=== PATIENT | female | born 1950 | race Caucasian/White ===

== ENCOUNTER 2018-03-02 14:28 | Inpatient (IN) | payer MEDICARE ==
[~2018-03-02] VITALS: Ht 170.2 cm; Wt 79.5 kg
[2018-03-02 15:02] LABS: BASO # 0.1 x10^3/uL (0.0-0.2); BASO % 1 % (0-3); EOS % 0 % (0-3); HEMATOCRIT 43.4 % (36.0-47.0); HEMOGLOBIN 14.7 g/dL (12.0-15.5); LYMPH # 1.7 x10^3/uL (1.0-4.8); LYMPH % 16 % (24-48); MEAN CORPUSCULAR HEMOGLOBIN 29 pg (25-35); MEAN CORPUSCULAR HGB CONC 34 g/dL (31-37); MEAN CORPUSCULAR VOLUME 85 fL (79-100); MONO # 0.6 x10^3/uL (0.0-1.1); MONO % 6 % (0-9); NEUT # 8.3 x10^3uL (1.8-7.7); NEUT % 78 % (31-73); PLATELET COUNT 237 x10^3/uL (140-400); RED BLOOD COUNT 5.14 x10^6/uL (3.50-5.40); RED CELL DISTRIBUTION WIDTH 15.8 % (11.5-14.5); WHITE BLOOD COUNT 10.7 x10^3/uL (4.0-11.0)
[2018-03-02 15:04] LABS: BILIRUBIN,URINE SMALL (NEG); CLARITY,URINE CLEAR; COLOR,URINE YELLOW; NITRITE,URINE NEGATIVE (NEG); PH,URINE 6.5; PROTEIN,URINE 30 mg/dL (NEG-TRACE)
--- NOTE | 2018-03-02 15:04 | EKG ---
[facility] [address] [place] [address] Test Date: 2018-03-02 Test Time: 14:52:22 Pat Name: ANTHONY MCMILLAN Department: Room: Gender: F Hand [employer]le [employer]: : 1950 Requested By: RENNY CISNEROS Order Number: [id number] Reading MD: Bijan Ferrera MD Measurements Intervals [place] Rate: 84 P: 49 CT: 138 QRS: 45 QRSD: 94 T: 66 QT: 354 QTc: 421 Interpretive Statements SINUS RHYTHM Electronically Signed On 03-03-2018 2:26:46 CDT by Bijan Ferrera MD
[2018-03-02 15:12] LABS: CALCIUM 9.7 mg/dL (8.5-10.1); CREATININE 0.8 mg/dL (0.6-1.0); GFR 71.1; POTASSIUM 3.2 mmol/L (3.5-5.1)
[2018-03-02 15:18] LABS: ALBUMIN 4.2 g/dL (3.4-5.0); ALBUMIN/GLOBULIN RATIO 1.2 (1.0-1.7); C-REACTIVE PROTEIN 14.1 mg/L (0-3.3); TOTAL BILIRUBIN 0.6 mg/dL (0.2-1.0); TOTAL PROTEIN 7.6 g/dL (6.4-8.2)
[2018-03-02 15:18] LABS: RBC,URINE OCC /HPF (0-2)
--- NOTE | 2018-03-02 15:18 | RAD ---
CT HEAD WO CONTRAST History: Confusion, weakness Comparison: None. Technique: Noncontrast CT imaging was performed of the head. Exposure: One or more of the following individualized dose reduction techniques were utilized for this examination: 1. Automated exposure control 2. Adjustment of the mA and/or kV according to patient size 3. Use of iterative reconstruction technique. Findings: There is a focus of lower density up to about 3.5 cm in size with cortical involvement of the left temporal occipital lobes. There is some other ill-defined low-density of the supratentorial parenchyma. No acute extra-axial or parenchymal hemorrhage is identified. There is no significant intra-axial mass effect, midline shift, or extra-axial fluid collection. Ventricles, sulci, and cisterns are within normal limits in size and configuration. The mastoid air cells and the visualized paranasal sinuses are aerated. No acute calvarial abnormality is identified. Impression: 1. There is a focus of low density with cortical involvement of the left temporal occipital lobes, likely due to late subacute infarct. There is other mild ill-defined low-density of the supratentorial parenchyma probably due to chronic microvascular ischemic disease. No acute intracranial hemorrhage is identified. FOR INTERNAL CODING PURPOSES Critical result: Findings discussed with RENNY CISNEROS APRN at 03/02/2018 3:14 PM. RESULT CODE: (C) Electronically signed by: Alexandru Singh MD (03/02/2018 3:15 PM) [facility]
[2018-03-02 15:19] LABS: BACTERIA,URINE MANY /HPF (0-FEW); SQUAMOUS EPITHELIAL CELL,UR MANY /LPF
[2018-03-02 15:25] LABS: CREATINE KINASE 43 U/L (26-192)
--- NOTE | 2018-03-02 15:48 | PHYS DOC ---
Past Medical History Past Medical History: Anxiety, Depression, GERD, Other Additional Past Medical Histor: chronic back pain Past Surgical History: Hysterectomy, Other Additional Past Surgical Histo: back surgery Additional Information: 1 06/30 ppd Alcohol Use: None Drug Use: None Adult General Chief Complaint Chief Complaint: NEURO SYMPTOMS/DEFICITS [facility] Patient is a 67 year old female who presents with weakness to her upper and lower extremities as well as confusion x 2 months. She states that she has become extremely concerned because you believe and forget her dog's name at times. she said this is not normal behavior for her. She states that she will also intermittently lose control of an arm or leg. She states that this can be either right or left side. She has also been having fatigue. She denies fever, headache or pain. Review of Systems Review of Systems Constitutional: Denies fever or chills [] Eyes: Denies change in visual acuity, redness, or eye pain [] HENT: Denies nasal congestion or sore throat [] Respiratory: Denies cough or shortness of breath [] Cardiovascular: No additional information not addressed in HPI [] GI: Denies abdominal pain, nausea, vomiting, bloody stools or diarrhea [] : Denies dysuria or hematuria [] Musculoskeletal: Denies back pain or joint pain [] Integument: Denies rash or skin lesions [] Neurologic: See history of present illness All other systems were reviewed and found to be within normal limits, except as documented in this note. Physical Exam Physical Exam Constitutional: Well developed, well nourished, no acute distress, non-toxic appearance. [] HENT: Normocephalic, atraumatic, bilateral external ears normal, oropharynx moist, no oral exudates, nose normal. [] Eyes: PERRLA, EOMI, conjunctiva normal, no discharge. [] Neck: Normal range of motion, no tenderness, supple, no stridor. [] Cardiovascular:Heart rate regular rhythm, no murmur [] Lungs & Thorax: Bilateral breath sounds clear to auscultation [] Abdomen: Bowel sounds normal, soft, no tenderness, no masses, no pulsatile masses. [] Skin: Warm, dry, no erythema, no rash. [] Back: No tenderness, no CVA tenderness. [] Extremities: No tenderness, no cyanosis, no clubbing, ROM intact, no edema. [] Neurologic: Alert and oriented X 3, normal motor function, normal sensory function Psychologic: Affect normal, judgement normal, mood normal. [] Current Patient Data Vital Signs Vital Signs Date Time Temp Pulse Resp B/P (MAP) Pulse Ox O2 Delivery O2 Flow Rate FiO2 03/02/18 16:37 76 96 03/02/18 15:43 20 03/02/18 14:38 99.0 221/107 (145) Room Air 99.0 Lab Values Laboratory Tests Test 03/02/18 14:35 03/02/18 14:45 03/02/18 14:52 Urine Collection Type Void Urine Color Yellow Urine Clarity Clear Urine pH 6.5 Urine Specific [place] 1.025 Urine Protein 30 mg/dL (NEG-TRACE) Urine Glucose (UA) Negative mg/dL (NEG) Urine Ketones (Stick) 15 mg/dL (NEG) Urine Blood Moderate (NEG) Urine Nitrite Negative (NEG) Urine Bilirubin Small (NEG) Urine Urobilinogen Dipstick 1.0 mg/dL (0.2 mg/dL) Urine Leukocyte Esterase Small (NEG) Urine RBC Occ /HPF (0-2) Urine WBC 1-4 /HPF (0-4) Urine Squamous Epithelial Cells Many /LPF Urine Bacteria Many /HPF (0-FEW) Urine Mucus Marked /LPF White Blood Count 10.7 x10^3/uL (4.0-11.0) Red Blood Count 5.14 x10^6/uL (3.50-5.40) Hemoglobin 14.7 g/dL (12.0-15.5) Hematocrit 43.4 % (36.0-47.0) Mean Corpuscular Volume 85 fL (79-100) Mean Corpuscular Hemoglobin 29 pg (25-35) Mean Corpuscular Hemoglobin Concent 34 g/dL (31-37) Red Cell Distribution Width 15.8 % (11.5-14.5) H Platelet Count 237 x10^3/uL (140-400) Neutrophils (%) (Auto) 78 % (31-73) H Lymphocytes (%) (Auto) 16 % (24-48) L Monocytes (%) (Auto) 6 % (0-9) Eosinophils (%) (Auto) 0 % (0-3) Basophils (%) (Auto) 1 % (0-3) Neutrophils # (Auto) 8.3 x10^3uL (1.8-7.7) H Lymphocytes # (Auto) 1.7 x10^3/uL (1.0-4.8) Monocytes # (Auto) 0.6 x10^3/uL (0.0-1.1) Eosinophils # (Auto) 0.0 x10^3/uL (0.0-0.7) Basophils # (Auto) 0.1 x10^3/uL (0.0-0.2) Erythrocyte Sedimentation Rate 18 (0-25) Sodium Level 138 mmol/L (136-145) Potassium Level 3.2 mmol/L (3.5-5.1) L Chloride Level 103 mmol/L (98-107) Carbon Dioxide Level 30 mmol/L (21-32) Anion Gap 5 (6-14) L Blood Urea Nitrogen 17 mg/dL (7-20) Creatinine 0.8 mg/dL (0.6-1.0) Estimated GFR (Cockcroft-Gault) 71.1 BUN/Creatinine Ratio 21 (6-20) H Glucose Level 107 mg/dL (70-99) H Lactic Acid Level 1.1 mmol/L (0.4-2.0) Calcium Level 9.7 mg/dL (8.5-10.1) Total Bilirubin 0.6 mg/dL (0.2-1.0) Aspartate Amino Transferase (AST) 14 U/L (15-37) L Alanine Aminotransferase (ALT) 21 U/L (14-59) Alkaline Phosphatase 136 U/L (46-116) H Creatine Kinase 43 U/L (26-192) Creatine Kinase MB (Mass) 0.6 ng/mL (0.0-3.6) Creatine Kinase MB Relative Index % (0-4) Troponin I Quantitative < 0.017 ng/mL (0.000-0.055) C-Reactive Protein, Quantitative 14.1 mg/L (0-3.3) H EO-Cdq-Y-Type Natriuretic Peptide 430 pg/mL (0-124) H Total Protein 7.6 g/dL (6.4-8.2) Albumin 4.2 g/dL (3.4-5.0) Albumin/Globulin Ratio 1.2 (1.0-1.7) Vitamin B12 Level 697 pg/mL (247-911) Thyroid Stimulating Hormone (TSH) 0.574 uIU/mL (0.358-3.74) Glucose (Fingerstick) 99 mg/dL (70-99) Laboratory Tests 03/02/18 14:45 Laboratory Tests 03/02/18 14:45 Microbiology 03/02/18 Urine Culture - Final, Complete 03/02/18 Urine Culture Result 1 (VIRIDIANA) - Final, Complete EKG EKG [] Radiology/Procedures Radiology/Procedures []Signed PATIENT: ANTHONY MCMILLAN ACCOUNT: [id number] : 1950 LOCATION: ER AGE: 67 SEX: F EXAM STATUS: REG ER ORD. PHYSICIAN: RENNY CISNEROS APRN REASON: confusion PROCEDURE: CT HEAD WO CONTRAST CT HEAD WO CONTRAST History: Confusion, weakness Comparison: None. Technique: Noncontrast CT imaging was performed of the head. Exposure: One or more of the following individualized dose reduction techniques were utilized for this examination: 1. Automated exposure control 2. Adjustment of the mA and/or kV according to patient size 3. Use of iterative reconstruction technique. Findings: There is a focus of lower density up to about 3.5 cm in size with cortical involvement of the left temporal occipital lobes. There is some other ill-defined low-density of the supratentorial parenchyma. No acute extra-axial or parenchymal hemorrhage is identified. There is no significant intra-axial mass effect, midline shift, or extra-axial fluid collection. Ventricles, sulci, and cisterns are within normal limits in size and configuration. The mastoid air cells and the visualized paranasal sinuses are aerated. No acute calvarial abnormality is identified. Impression: 1. There is a focus of low density with cortical involvement of the left temporal occipital lobes, likely due to late subacute infarct. There is other mild ill-defined low-density of the supratentorial parenchyma probably due to chronic microvascular ischemic disease. No acute intracranial hemorrhage is identified. FOR INTERNAL CODING PURPOSES Critical result: Findings discussed with RENNY CISNEROS APRN at 03/02/2018 3:14 PM. RESULT CODE: (C) Course & Med Decision Making Course & Med Decision Making Pertinent Labs and Imaging studies reviewed. (See chart for details) The patient is being admitted to Dr. Kim's service. Dr. Castro has been consulted in the care of this patient. Dragon Disclaimer Dragon Disclaimer This electronic medical record was generated, in whole or in part, using a voice recognition dictation system. Departure Departure Impression: Primary Impression: CVA (cerebral vascular accident) Additional Impression: UTI (urinary tract infection) Disposition: 09 ADMITTED INPATIENT Admitting Physician: Tre Kim Referrals: UNKNOWN PCP NAME (PCP) Problem Qualifiers RENNY CISNEROS [employer] Mar 02, 2018 15:48
--- NOTE | 2018-03-02 16:11 | RAD ---
CHEST PA LATERAL Clinical indications: weak and dizzy for months. COMPARISON: None available. Findings: No acute lung infiltrate or pleural effusion or pulmonary edema or lung mass or pneumothorax is seen. The heart size, pulmonary vasculature, mediastinum and both jean carlos are unremarkable. The osseous structures appear intact. Impression: No acute radiographic abnormality is seen. Electronically signed by: Robert Allen MD (03/02/2018 4:08 PM) [facility]
[2018-03-02] MEDS ORDERED: METOPROLOL TARTRATE 5 MG/5 ML VIAL. IVP ONE (17:00)
[2018-03-02] MEDS ORDERED: LABETALOL 20 MG/4 ML DISP.SYRIN. IVP PRN (19:00)
[2018-03-02] MEDS ORDERED: LISINOPRIL 10 MG TABLET PO ONE (19:30)
[2018-03-02 20:00] VITALS: BP 189/85
[2018-03-02] MEDS ORDERED: OMEP20TA63 PO (20:11)
[2018-03-02] MEDS ORDERED: LOPE2CAP88 PO (20:11)
[2018-03-02] MEDS ORDERED: LOPERAMIDE HCL 2 MG PO SCH (21:00)
[2018-03-02] MEDS: ZOLPIDEM 5 MG TABLET. PO PRN (21:09)
[2018-03-02 23:05] VITALS: BP 114/89
[2018-03-03] MEDS: LOPERAMIDE 2 MG CAPSULE PO PRN ×2 (03:04→20:08)
[2018-03-03 03:10] VITALS: BP 175/76
[2018-03-03 07:59] VITALS: BP 167/65
--- NOTE | 2018-03-03 08:31 | PDOC1 ---
H & P H&P HPI: Mrs. Espinosa is a 67-year-old female with past medical history of hypertension and hx of tobacco abuse who presented to the emergency room for chronic neurological symptoms that began proximally 5-6 months ago. She doesn't remember a period of time when symptoms onset suddenly. Of note she has not been seen in our office since 2013 and has been without her medications for this time. She notes generalized weakness (possibly R worse than L) for quite sometime. She denies falls, but notes feeling unsteady. She notes tingling/ numbness in fingers only in b/l hands, denies any other numbness. She notes vision changes that she has difficulty fully explaining but seems more blurry than anything else. Denies distinct visual field loss. She denies feeling confused, but seems to have some difficulty answering questions during the interview ROS: Constitutional: Denies fever, fatigue, chills HEENT: Admits vision changes, denies change in hearing Cardio: Denies chest pain Pulmonary: Denies shortness of breath, cough, wheezing GI: Denies nausea, vomiting, diarrhea, constipation : Denies dysuria, admits frequency, urgency Skin: Denies new lesions Neuro: Admits generalized weakness, numbness in fingers b/l hands ED Course: Labs are remarkable for normal TSH normal B12, mildly elevated CRP and BNP, mild hypokalemia 3.2. Otherwise unremarkable. UA was significant for moderate blood small leukoesterase and small bili with negative nitrites and was noted to have copious squams and bacteria present. She was given Rocephin and admitted for further management. PMH: HTN, nicotine dependence, GERD, chronic diarrhea, reports hx of rheumatic fever as a child Family Hx: GM had a stroke, Sister had DM Social Hx: Pt denies being a smoker. though documentation from 2013 in clinic shows that she was a smoker at that time. No alcohol or drug use reported. Surg Hx: Hysterectomy in 80s, denies any other recent surgeries Meds: Reviewed and reconciled Allergies: Reviewed PE: Alert, oriented, no acute distress EOMI, sclera non-icteric Neck supple RRR, 2/6 systolic murmur at 2nd R intercostal space CTAB, no wheezes, crackles or rhonchi Soft, NT, ND No edema, cyanosis. Normal capillary refill. Calm, cooperative, mood/affect within normal limits, seems mildly confused. Basic MMSE was normal apart from spelling WORLD backwards as DLORW and remember 2/[address] HEAD WO CONTRAST History: Confusion, weakness Impression: 1. There is a focus of low density with cortical involvement of the left temporal occipital lobes, likely due to late subacute infarct. There is other mild ill-defined low-density of the supratentorial parenchyma probably due to chronic microvascular ischemic disease. No acute intracranial hemorrhage is identified. Assessment/Plan: Late subacute left temporal/occipital lobe CVA Chronic microvascular ischemic disease Accelerated HTN Mild UTI Possibly hx of nicotine dependence Possible mild cognitive impairment GERD Chronic diarrhea Added lisinopril 20mg yesterday for HTN control with moderate improvement, continue to monitor Neuro consulted PT/OT eval MRI, Carotid dopplers, Echo CHIP HERNANDEZ MD Mar 03, 2018 08:31
[2018-03-03] MEDS: LISINOPRIL 20 MG TABLET PO SCH (08:49)
[2018-03-03] MEDS: PANTOPRAZOLE 40 MG TABLET.DR. PO SCH (08:49)
[2018-03-03] MEDS ORDERED: ASPIRIN 300 MG SUPP.RECT PR PRN (09:00)
[2018-03-03] MEDS ORDERED: ACETAMINOPHEN 650 MG SUPP.RECT. PR PRN (09:00)
[2018-03-03] MEDS ORDERED: diazePAM 5 MG TABLET PO ONE ×2 (09:00→13:30)
--- NOTE | 2018-03-03 10:19 | RAD ---
Carotid ultrasound, 03/03/2018: HISTORY: CVA Duplex evaluation of the carotid arteries and neck was performed including grayscale, color-flow and spectral Doppler analysis. There is moderate atherosclerotic plaquing at the right carotid bifurcation with dominant involvement of the external carotid artery origin. The peak systolic velocity in the proximal right external carotid artery is 397 suggesting stenosis at its origin. Correlation with the color images suggest a moderate degree of stenosis. The peak systolic velocity in the right internal carotid artery is 93 cm/s with an end-diastolic velocity of 27 cm/s and an internal carotid to common carotid artery ratio 1.1. This suggests luminal narrowing of the proximal internal carotid artery in the 0-50 percent diameter range. On the left, there is a lesser degree of atherosclerotic plaquing. The peak systolic velocity in the left internal carotid artery is 80 cm/s with an end-diastolic velocity of 25 cm/s and an internal carotid to common carotid artery ratio of 0.8. The Doppler findings suggest narrowing of the proximal internal carotid artery in the 0-50 percent diameter range. There is a moderate velocity acceleration the left external carotid artery up to 198 cm/s. Antegrade flow is present in both vertebral arteries in the neck. IMPRESSION: 1. Moderate atherosclerotic plaquing at the carotid bifurcations, right greater than left, with underlying luminal narrowing of the proximal internal carotid arteries in the 0-50 percent diameter range bilaterally. 2. Doppler evidence of moderate stenosis at the external carotid artery origins, right greater than left. Note: Stenosis calculations for CT, MRA and conventional angiography are based upon determination of the distal ICA diameter in accordance with the NASCET methodology. Stenosis calculations for Doppler studies are derived from validated velocity criteria which are known to correlate with NASCET methodology of determining stenosis. Electronically signed by: Jose Maria Villa MD (03/03/2018 10:16 AM) [facility]
[2018-03-03 11:00] VITALS: BP 144/75
--- NOTE | 2018-03-03 11:06 | PDOC2 ---
NEUROLOGY CONSULT Date of Admission Date of Admission DATE: 03/03/18 TIME: 11:00 Reason for Consult Reason for Consult: Possible stroke Referring Physician Referring Physician: Dr. Flores Source Source: Chart review, Patient History of Present Illness History of Present Illness The patient is a 67-year-old right-handed female who came to the emergency department last night because she could no longer take care of herself. For as long as 5 months she has had blurred vision, clumsiness of both arms, weakness of the arms and legs, and difficulty walking. She has not seen a physician in several years. There is no headache, diplopia, dysphagia, dysarthria, focal numbness or weakness. There is no prior history of stroke, seizure, or head injury. She has not figured out inciting or mitigating features. Past Medical History Cardiovascular: HTN GI: GERD Psych: Anxiety, Depression Musculoskeletal: low back pain Past Surgical History Past Surgical History: Tonsillectomy, Hysterectomy, Other (Lumbar) Family History Family History: Cancer Social History Social History Single, quit smoking yesterday, no alcohol, retired Current Medications Current Medications Current Medications Metoprolol Tartrate (Lopressor Vial) 5 mg 1X ONCE IVP Last administered on 03/02at 17:40; Start 03/02/18 at 17:00; Stop 03/02/18 at 17:01; Status DC Lisinopril (Prinivil) 20 mg 1X ONCE PO Last administered on 03/02/18at 19:40; Start 03/02/18 at 19:30; Stop 03/02/18 at 19:31; Status DC Lisinopril (Prinivil) 20 mg DAILY PO Last administered on 03/03/18at 08:49; Start 03/03/18 at 09:00 Labetalol HCl (Normodyne Iv Push) 10 mg PRN Q4HRS PRN IVP HYPERTENSION, SEE COMMENTS; Start 03/02/18 at 19:00 Zolpidem Tartrate (Ambien) 5 mg PRN QHS PRN PO INSOMNIA Last administered on 03/02/18at 21:09; Start 03/02/18 at 20:30 Non-Formulary Medication (Loperamide HCl (Imodium A-D)) 2 mg QID PO ; Start 03/02 at 21:00; Stop 03/02/18 at 21:00; Status DC Pantoprazole Sodium (Protonix) 40 mg DAILYAC PO Last administered on 03/03/18at 08:49; Start 03/03/18 at 07:30 Loperamide HCl (Imodium) 2 mg PRN QID PRN PO DIARRHEA Last administered on at 03:04; Start 03/02/18 at 20:45 Enoxaparin Sodium (Lovenox 40mg Syringe) 40 mg DAILY SQ ; Start 03/03/18 at 09:00 Simvastatin (Zocor) 10 mg QHS PO ; Start 03/03/18 at 21:00 Acetaminophen (Tylenol) 650 mg PRN Q6HRS PRN PO TEMP > 100.4F; Start 03/03/18 at 09:00 Acetaminophen (Tylenol Supp) 650 mg PRN Q4HRS PRN NC TEMP > 100.4F; Start at 09:00 Aspirin (Ecotrin) 325 mg DAILYWBKFT PO ; Start 03/03/18 at 09:00 Aspirin (Aspirin) 300 mg PRN DAILY PRN NC IF UNABLE TO TAKE PO; Start 03/03/18 at 09:00 Diazepam (Valium) 10 mg 1X ONCE PO ; Start 03/03/18 at 09:00; Stop 03/03/18 at 09 :01; Status DC Ceftriaxone Sodium 1 gm/ Dextrose 50 ml @ 100 mls/hr Q24H IV ; Start 03/03/18 at 09:45; Status UNV Ceftriaxone Sodium (Rocephin) 1 gm Q24H IVP ; Start 03/03/18 at 10:00 Lactobacillus Rhamnosus (Culturelle) 1 cap BID PO ; Start 03/03/18 at 21:00 Active Scripts Active Reported Prilosec Otc (Omeprazole Magnesium) 20 Mg Tablet.dr 1 Tab PO DAILY Imodium A-D (Loperamide HCl) 2 Mg Capsule 2 Mg PO QID Allergies Allergies: Coded Allergies: No Known Drug Allergies (Unverified , 03/02/18) ROS Review of System Negative for fevers, chills, weight loss, shortness of breath, chest pain, indigestion, hematochezia, melena, dysuria. Full 14-point review systems is negative. Physical Exam Physical Examination General: Well-developed, well-nourished, white female, in no acute distress HEENT: Normocephalic andatraumatic. Temporal arteriespulsatile and nontender. Neck: Supple without bruit, no meningismus Musculoskeletal: Stability:see neurologic. Gait exam:see neurologic. Tone:see neurologic. Strength:see neurologic. Neurological: Mental Status:intact, orientation, memory, attention span/concentration, language, fund of knowledge normal. Cranial Nerves:Pupils equal and reactive to light, extraocular movements areintact, visual louis are full to confrontation. Facial sensation is normal. There is no facial asymmetry. Vestibulo-ocular reflex is intact. Palate elevates and tongue protrudes in midline. All other cranial related problems are negative except as mentioned before.Reflexes:2+ and symmetric with flexor plantar responses. Motor:5/5 strength with normal tone and bulk. Coordination:Finger-nose finger and heel-to -tyler testing are normal. Rapid alternating movements and fine finger movements are intact. Gait: ataxic. Sensory:Normal pinprick, vibration, light touch, proprioception. Vitals VITALS Vital Signs Date Time Temp Pulse Resp B/P (MAP) Pulse Ox O2 Delivery O2 Flow Rate FiO2 03/03/18 08:49 64 167/65 03/03/18 08:00 Room Air 03/03/18 07:59 98.8 16 93 98.8 Labs Labs Laboratory Tests Test 03/02/18 14:35 03/02/18 14:45 03/02/18 14:52 Urine Collection Type Void Urine Color Yellow Urine Clarity Clear Urine pH 6.5 Urine Specific [place] 1.025 Urine Protein 30 mg/dL (NEG-TRACE) Urine Glucose (UA) Negative mg/dL (NEG) Urine Ketones (Stick) 15 mg/dL (NEG) Urine Blood Moderate (NEG) Urine Nitrite Negative (NEG) Urine Bilirubin Small (NEG) Urine Urobilinogen Dipstick 1.0 mg/dL (0.2 mg/dL) Urine Leukocyte Esterase Small (NEG) Urine RBC Occ /HPF (0-2) Urine WBC 1-4 /HPF (0-4) Urine Squamous Epithelial Cells Many /LPF Urine Bacteria Many /HPF (0-FEW) Urine Mucus Marked /LPF White Blood Count 10.7 x10^3/uL (4.0-11.0) Red Blood Count 5.14 x10^6/uL (3.50-5.40) Hemoglobin 14.7 g/dL (12.0-15.5) Hematocrit 43.4 % (36.0-47.0) Mean Corpuscular Volume 85 fL (79-100) Mean Corpuscular Hemoglobin 29 pg (25-35) Mean Corpuscular Hemoglobin Concent 34 g/dL (31-37) Red Cell Distribution Width 15.8 % (11.5-14.5) Platelet Count 237 x10^3/uL (140-400) Neutrophils (%) (Auto) 78 % (31-73) Lymphocytes (%) (Auto) 16 % (24-48) Monocytes (%) (Auto) 6 % (0-9) Eosinophils (%) (Auto) 0 % (0-3) Basophils (%) (Auto) 1 % (0-3) Neutrophils # (Auto) 8.3 x10^3uL (1.8-7.7) Lymphocytes # (Auto) 1.7 x10^3/uL (1.0-4.8) Monocytes # (Auto) 0.6 x10^3/uL (0.0-1.1) Eosinophils # (Auto) 0.0 x10^3/uL (0.0-0.7) Basophils # (Auto) 0.1 x10^3/uL (0.0-0.2) Erythrocyte Sedimentation Rate 18 (0-25) Sodium Level 138 mmol/L (136-145) Potassium Level 3.2 mmol/L (3.5-5.1) Chloride Level 103 mmol/L (98-107) Carbon Dioxide Level 30 mmol/L (21-32) Anion Gap 5 (6-14) Blood Urea Nitrogen 17 mg/dL (7-20) Creatinine 0.8 mg/dL (0.6-1.0) Estimated GFR (Cockcroft-Gault) 71.1 BUN/Creatinine Ratio 21 (6-20) Glucose Level 107 mg/dL (70-99) Lactic Acid Level 1.1 mmol/L (0.4-2.0) Calcium Level 9.7 mg/dL (8.5-10.1) Total Bilirubin 0.6 mg/dL (0.2-1.0) Aspartate Amino Transf (AST/SGOT) 14 U/L (15-37) Alanine Aminotransferase (ALT/SGPT) 21 U/L (14-59) Alkaline Phosphatase 136 U/L (46-116) Creatine Kinase 43 U/L (26-192) Creatine Kinase MB (Mass) 0.6 ng/mL (0.0-3.6) Creatine Kinase MB Relative Index % (0-4) Troponin I Quantitative < 0.017 ng/mL (0.000-0.055) C-Reactive Protein, Quantitative 14.1 mg/L (0-3.3) JW-Yra-N-Type Natriuretic Peptide 430 pg/mL (0-124) Total Protein 7.6 g/dL (6.4-8.2) Albumin 4.2 g/dL (3.4-5.0) Albumin/Globulin Ratio 1.2 (1.0-1.7) Vitamin B12 Level 697 pg/mL (247-911) Thyroid Stimulating Hormone (TSH) 0.574 uIU/mL (0.358-3.74) Glucose (Fingerstick) 99 mg/dL (70-99) Laboratory Tests Test 03/02/18 14:35 03/02/18 14:45 03/02/18 14:52 Urine Collection Type Void Urine Color Yellow Urine Clarity Clear Urine pH 6.5 Urine Specific [place] 1.025 Urine Protein 30 mg/dL (NEG-TRACE) Urine Glucose (UA) Negative mg/dL (NEG) Urine Ketones (Stick) 15 mg/dL (NEG) Urine Blood Moderate (NEG) Urine Nitrite Negative (NEG) Urine Bilirubin Small (NEG) Urine Urobilinogen Dipstick 1.0 mg/dL (0.2 mg/dL) Urine Leukocyte Esterase Small (NEG) Urine RBC Occ /HPF (0-2) Urine WBC 1-4 /HPF (0-4) Urine Squamous Epithelial Cells Many /LPF Urine Bacteria Many /HPF (0-FEW) Urine Mucus Marked /LPF White Blood Count 10.7 x10^3/uL (4.0-11.0) Red Blood Count 5.14 x10^6/uL (3.50-5.40) Hemoglobin 14.7 g/dL (12.0-15.5) Hematocrit 43.4 % (36.0-47.0) Mean Corpuscular Volume 85 fL (79-100) Mean Corpuscular Hemoglobin 29 pg (25-35) Mean Corpuscular Hemoglobin Concent 34 g/dL (31-37) Red Cell Distribution Width 15.8 % (11.5-14.5) Platelet Count 237 x10^3/uL (140-400) Neutrophils (%) (Auto) 78 % (31-73) Lymphocytes (%) (Auto) 16 % (24-48) Monocytes (%) (Auto) 6 % (0-9) Eosinophils (%) (Auto) 0 % (0-3) Basophils (%) (Auto) 1 % (0-3) Neutrophils # (Auto) 8.3 x10^3uL (1.8-7.7) Lymphocytes # (Auto) 1.7 x10^3/uL (1.0-4.8) Monocytes # (Auto) 0.6 x10^3/uL (0.0-1.1) Eosinophils # (Auto) 0.0 x10^3/uL (0.0-0.7) Basophils # (Auto) 0.1 x10^3/uL (0.0-0.2) Erythrocyte Sedimentation Rate 18 (0-25) Sodium Level 138 mmol/L (136-145) Potassium Level 3.2 mmol/L (3.5-5.1) Chloride Level 103 mmol/L (98-107) Carbon Dioxide Level 30 mmol/L (21-32) Anion Gap 5 (6-14) Blood Urea Nitrogen 17 mg/dL (7-20) Creatinine 0.8 mg/dL (0.6-1.0) Estimated GFR (Cockcroft-Gault) 71.1 BUN/Creatinine Ratio 21 (6-20) Glucose Level 107 mg/dL (70-99) Lactic Acid Level 1.1 mmol/L (0.4-2.0) Calcium Level 9.7 mg/dL (8.5-10.1) Total Bilirubin 0.6 mg/dL (0.2-1.0) Aspartate Amino Transf (AST/SGOT) 14 U/L (15-37) Alanine Aminotransferase (ALT/SGPT) 21 U/L (14-59) Alkaline Phosphatase 136 U/L (46-116) Creatine Kinase 43 U/L (26-192) Creatine Kinase MB (Mass) 0.6 ng/mL (0.0-3.6) Creatine Kinase MB Relative Index % (0-4) Troponin I Quantitative < 0.017 ng/mL (0.000-0.055) C-Reactive Protein, Quantitative 14.1 mg/L (0-3.3) EL-Uhu-J-Type Natriuretic Peptide 430 pg/mL (0-124) Total Protein 7.6 g/dL (6.4-8.2) Albumin 4.2 g/dL (3.4-5.0) Albumin/Globulin Ratio 1.2 (1.0-1.7) Vitamin B12 Level 697 pg/mL (247-911) Thyroid Stimulating Hormone (TSH) 0.574 uIU/mL (0.358-3.74) Glucose (Fingerstick) 99 mg/dL (70-99) Images Images CT head: There is a focus of lower density up to about 3.5 cm in size with cortical involvement of the left temporal occipital lobes. There is some other ill-defined low-density of the supratentorial parenchyma. No acute extra-axial or parenchymal hemorrhage is identified. There is no significant intra-axial mass effect, midline shift, or extra-axial fluid collection. Ventricles, sulci, and cisterns are within normal limits in size and configuration. The mastoid air cells and the visualized paranasal sinuses are aerated. No acute calvarial abnormality is identified. Impression: 1. There is a focus of low density with cortical involvement of the left temporal occipital lobes, likely due to late subacute infarct. There is other mild ill-defined low-density of the supratentorial parenchyma probably due to chronic microvascular ischemic disease. No acute intracranial hemorrhage is identified. Assessment/Plan Assessment/Plan Impression: Left temporal-occipital infarct which may have happened several months ago leaving the patient with some clumsiness, confusion, but she does not exhibit the expected field cut. Recommendations: MRI of the brain Carotid Doppler studies Echocardiogram Rehabilitation modalities Aspirin Statin Check lipids Obviously not a candidate for alteplase as symptom started several months ago. Discussed with Dr. Flores Thank you for letting me help with the patient's care. ANT CARLSON MD Mar 03, 2018 11:06
[2018-03-03] MEDS: ENOXAPARIN 40 MG/0.4 ML SYRINGE. SQ SCH (11:19)
[2018-03-03] MEDS: ASPIRIN ENTERIC COATED 325 MG TABLET.DR. PO SCH (11:19)
[2018-03-03] MEDS: ACETAMINOPHEN 325 MG TABLET. PO PRN ×2 (11:19→20:08)
[2018-03-03] MEDS: cefTRIAXone IV Push 1 GM VIAL. IVP SCH (11:19)
--- NOTE | 2018-03-03 14:53 | RAD ---
MRI Brain without contrast History: Abnormal CT, old CVA, recent history of confusion and weakness Technique: Multiplanar, multisequential noncontrast MR imaging was performed of the brain. Contrast: None Comparison: March 02, [address] Findings: There is encephalomalacia and gliosis with cortical involvement of the left temporal occipital lobes corresponding with CT abnormality, some subtle associated old hemorrhage/hemosiderin deposition. However there are several scattered small foci of restricted diffusion of the left frontal parietal lobes with some cortical involvement although primarily in the white matter, also focus more centrally near the cingulate gyrus or corpus callosum and also a a few likely tiny foci of the right parietal cortical surface. There is also questionable tiny focus of the right occipital lobe. There is no midline shift or extra-axial fluid collection. There is other scattered oxtb-dr-ftubzxyu T2 and FLAIR hyperintense abnormality of the supratentorial parenchyma bilaterally greater on the left, also old lacunar infarcts of the left choi radiata and basal ganglia. There is xdkd-sn-dhghhwbq T2 and FLAIR hyperintense signal abnormality of the aster. There is preservation of the major arterial intracranial flow voids at the skull base. The mastoid air cells are aerated. Cerebellar tonsils are normal in location. There is preserved marrow signal of the clivus. There is no abnormality of the pineal gland or pituitary gland. Impression: 1. Abnormality on CT corresponds with old infarct with cortical involvement although there are several small acute or early subacute infarcts most numerous of the left frontal parietal lobes although also some foci of the right parietal lobe and questionably of the right occipital lobe and cingulate gyrus or corpus callosum. Other scattered T2 and FLAIR hyperintense signal abnormality of the supratentorial parenchyma greater on the left and also of the aster is probably due to chronic microvascular ischemic disease, also old lacunar infarct of the left choi radiata and basal ganglia. FOR INTERNAL CODING PURPOSES Critical result: Findings discussed with patient's nurse Earle at 03/03/2018 2:49 PM. RESULT CODE: (C) Electronically signed by: Alexandru Singh MD (03/03/2018 2:49 PM) [facility]
[2018-03-03 15:35] VITALS: BP 158/83
[2018-03-03] MEDS ORDERED: LABETALOL 20 MG/4 ML DISP.SYRIN. IVP PRN (16:00)
--- NOTE | 2018-03-03 16:09 | CARD ---
MR#: [id number] Date of Study: 03/03/2018 Ordering Physician: ANT CARLSON, Referring Physician: CHIP JAMISON Tech: Clau Carter RDCS APPROVED REPORT EXAM: Two-dimensional and M-mode echocardiogram with Doppler and color Doppler. Other Information Quality : Good INDICATION CVA/TIA 2D DIMENSIONS RVDd2.4 (2.9-3.5cm)Left Atrium(2D)3.8 (1.6-4.0cm) IVSd1.1 (0.7-1.1cm)Aortic Root(2D)2.7 (2.0-3.7cm) LVDd4.8 (3.9-5.9cm)LVOT Diameter2.0 (1.8-2.4cm) PWd1.1 (0.7-1.1cm)LVDs2.7 (2.5-4.0cm) FS (%) 30.0 %SV77.9 ml LVEF(%)60.0 (>50%) Aortic Valve AoV Peak Grayson.159.2cm/sAoV VTI25.6cm AO Peak GR.10.1mmHgLVOT Peak Grayson.119.6cm/s AO Mean GR.5mmHgAVA (VMAX)2.31cm2 KASSI (VTI)2.70cm2 Mitral Valve MV E Gxxgzhso74.1cm/sMV DECEL DHIP316cl MV A Zlxlmqyb759.2cm/sE/A Ratio0.8 Pulmonary Vein S1 Kjihztbr26.7cm/sD2 Utssuuiz01.1cm/s LEFT VENTRICLE The left ventricle is normal size. There is normal left ventricular wall thickness. The left ventricu lar systolic function is normal and the ejection fraction is within normal range. The Ejection Fracti on is 55-60%. There is normal LV segmental wall motion. Transmitral Doppler flow pattern is Grade I-a bnormal relaxation pattern. RIGHT VENTRICLE The right ventricle is normal size. The right ventricular systolic function is normal. ATRIA The left atrium size is normal. The right atrium size is normal. The interatrial septum is intact wit h no evidence for an atrial septal defect or patent foramen ovale as noted on 2-D or Doppler imaging. AORTIC VALVE The aortic valve is calcified but opens well. Doppler and Color Flow revealed trace aortic regurgitat ion. There is no significant aortic valvular stenosis. MITRAL VALVE The mitral valve is calcified but opens well. There is no evidence of mitral valve prolapse. There is no mitral valve stenosis. Doppler and Color-flow revealed trace mitral regurgitation. TRICUSPID VALVE The tricuspid valve is normal in structure and function. Doppler and Color Flow revealed no tricuspid valve regurgitation noted. There is no tricuspid valve stenosis. PULMONIC VALVE The pulmonic valve is not well visualized. Doppler and Color Flow revealed trace pulmonic valvular re gurgitation. There is no pulmonic valvular stenosis. GREAT VESSELS The aortic root is normal in size. The ascending aorta is normal in size. The IVC is normal in size a nd collapses >50% with inspiration. PERICARDIAL EFFUSION There is no evidence of significant pericardial effusion. Critical Notification Critical Value: No <Conclusion> The left ventricular systolic function is normal and the ejection fraction is within normal range. Th e Ejection Fraction is 55-60%. There is normal LV segmental wall motion. Signed by : Bijan Ferrera, Electronically Approved : 03/03/2018 16:08:27
--- NOTE | 2018-03-03 16:26 | PDOC2 ---
NIRANJAN LAWSON ACLS SPECIALIST 03/03/18 1626: CARDIAC CONSULT DATE OF CONSULT Date of Consult DATE: 03/03/18 TIME: 15:53 REASON FOR CONSULT Reason for Consult: CVA, multiple infarcts REFERRING PHYSICIAN Referring Physician: Matthew SOURCE Source: Chart review, Patient HISTORY OF PRESENT ILLNESS HISTORY OF PRESENT ILLNESS This is a pleasant 67 yo female admitted for stroke symptoms. She has been having constellation of symptoms at least in the last 6 months. Reports symptoms ranging initially from imbalance, word finding, ataxia then progressed to sometimes swallwing difficulty, blurred vision, vertigo, dizziness and MAYO and periods of confusion. 2 weeks ago she has made significant amount of groceries to prevent herself from going out since her mobility has been significantly diminished. In the last month she has fallen 5 times due to lost of balance but no injury. She does have longstanding hx of HTN but elected not to take any BP meds. Denies any symptoms of CP, SOA, palpitations. No prior hx of CAD, VTE, arrhythmias but had rheumatic heart fever when she was 4 yo. No nausea or vomiting but does have chronic diarrhea. PAST MEDICAL HISTORY Cardiovascular: HTN, Other (rheumatic fever as a child) Pulmonary: No pertinent hx CENTRAL NERVOUS SYSTEM: CVA GI: GERD, Other (chronic diarrhea) Heme/Onc: No pertinent hx Hepatobiliary: No pertinent hx Psych: No pertinent hx Musculoskeletal: Osteoarthritis Rheumatologic: No pertinent hx Infectious disease: No pertinent hx ENT: No pertinent hx Renal/: UTI, Urinary Incontinence (frequency) Endocrine: No pertinent hx Dermatology: No pertinent hx PAST SURGICAL HISTORY Past Surgical History: Hysterectomy, Other (lumbar surgery) FAMILY HISTORY Family History: Diabetes (sister), Stroke (grandmother) SOCIAL HISTORY Smoke: Quit ALCOHOL: none Drugs: None Lives: Alone CURRENT MEDICATIONS CURRENT MEDICATIONS Current Medications Medications (Trade) Dose Ordered Sig/Sanjay Route PRN Reason Start Time Stop Time Status Last Admin Dose Admin Metoprolol Tartrate (Lopressor Vial) 5 mg 1X ONCE IVP 03/02/18 17:00 03/02/18 17:01 DC 03/02/18 17:40 Lisinopril (Prinivil) 20 mg 1X ONCE PO 03/02/18 19:30 03/02/18 19:31 DC 03/02/18 19:40 Lisinopril (Prinivil) 20 mg DAILY PO 03/03/18 09:00 03/03/18 08:49 Zolpidem Tartrate (Ambien) 5 mg PRN QHS PRN PO INSOMNIA 03/02/18 20:30 03/02/18 21:09 Pantoprazole Sodium (Protonix) 40 mg DAILYAC PO 03/03/18 07:30 03/03/18 08:49 Loperamide HCl (Imodium) 2 mg PRN QID PRN PO DIARRHEA 03/02/18 20:45 03/03/18 03:04 Enoxaparin Sodium (Lovenox 40mg Syringe) 40 mg DAILY SQ 03/03/18 09:00 03/03/18 11:19 Acetaminophen (Tylenol) 650 mg PRN Q6HRS PRN PO TEMP > 100.4F 03/03/18 09:00 03/03/18 11:19 Aspirin (Ecotrin) 325 mg DAILYWBKFT PO 03/03/18 09:00 03/03/18 11:19 Ceftriaxone Sodium (Rocephin) 1 gm Q24H IVP 03/03/18 10:00 03/03/18 11:19 Diazepam (Valium) 10 mg 1X ONCE PO 03/03/18 13:30 03/03/18 13:31 DC 03/03/18 13:22 ALLERGIES ALLERGIES: Coded Allergies: No Known Drug Allergies (Unverified , 03/02/18) ROS Review of System 14 point ROS evaluated with pertinent positives noted per HPI PHYSICAL EXAM General: Alert, Oriented X3, Cooperative, No acute distress HEENT: Atraumatic, Mucous membr. moist/pink Lungs: Clear to auscultation, Normal air movement Heart: Regular rate (SR), Normal S1, Normal S2, Other (2/6 systolic murmur to WIL border) Abdomen: Soft, No tenderness Extremities: No cyanosis, No edema Skin: No breakdown, No significant lesion Neuro: Normal speech, Sensation intact Psych/Mental Status: Mental status NL, Mood NL MUSCULOSKELETAL: Osteoarthritic changes both hands VITALS VITALS Vital Signs Date Time Temp Pulse Resp B/P (MAP) Pulse Ox O2 Delivery O2 Flow Rate FiO2 03/03/18 15:35 98.3 74 18 158/83 (108) 95 Room Air 98.3 ASSESSMENT/PLAN ASSESSMENT/PLAN 1. CVA: multiple infarcts, old and new. Neurology following 2. Carotid artery disease 3. Accelerated HTN 4. HLP Recommendations 1. WALTER tomorrow and will note any cardioembolic source. risks and benefits discussed and agreeable to proceed. 2. EKG SR. Place on tele monitor. If no conclusive evidence of arrhythmias such as afib or flutter then will arrange for outpt event monitor or LINQ 3. ASA and statin. Labetolol IV PRN ANALY BAEZ MD 03/03/18 1734: CARDIAC CONSULT ASSESSMENT/PLAN ASSESSMENT/PLAN Pt. seen and examined. Agree with above SENIOR PRODUCT ANALYST note. Plan for WALTER in a.m. Would definitely benefit from implantable loop recorder to rule out arrhythmias as this would change anticoagulation mgmt. Will follow up in a.m. Thanks NIRANJAN LAWSON APRN Mar 03, 2018 16:26 ANALY BAEZ MD Mar 03, 2018 17:34
[2018-03-03 19:38] VITALS: BP 129/81
[2018-03-03] MEDS: ZOLPIDEM 5 MG TABLET. PO PRN (20:08)
[2018-03-03] MEDS: LACTOBACILLUS RHAMNOSUS GG 1 CAPSULE. PO SCH (20:08)
[2018-03-03] MEDS ORDERED: SIMVASTATIN 10 MG TABLET PO SCH (21:00)
[2018-03-03 23:05] VITALS: BP 145/82
[2018-03-04 03:00] VITALS: BP 139/80
[2018-03-04 04:54] LABS: CALCIUM 9.2 mg/dL (8.5-10.1); CREATININE 0.9 mg/dL (0.6-1.0); GFR 62.1
[2018-03-04 05:15] LABS: CHOLESTEROL/HDL RATIO 6.3
[2018-03-04] MEDS ORDERED: LIDOCAINE 1% PF 2 ML VIAL. ID PRN (07:00)
[2018-03-04] MEDS ORDERED: MORPHINE SULFATE 2 MG/ML VIAL. IV PRN (07:00)
[2018-03-04] MEDS ORDERED: HYDROmorphone 2 MG/ML VIAL IV PRN (07:00)
[2018-03-04] MEDS ORDERED: fentaNYL PF VIAL 100 MCG/2 ML VIAL IV PRN ×2 (07:00)
[2018-03-04] MEDS ORDERED: ONDANSETRON PF 4 MG/2 ML VIAL. IV PRN (07:00)
[2018-03-04] MEDS ORDERED: PROCHLORPERAZINE 10 MG/2 ML VIAL. IV PRN (07:00)
[2018-03-04] MEDS ORDERED: IV RINGERS,LACTATED 1000ML 1,000 ML IV SCH (07:00)
[2018-03-04] MEDS: LISINOPRIL 20 MG TABLET PO SCH (07:54)
[2018-03-04] MEDS: PANTOPRAZOLE 40 MG TABLET.DR. PO SCH (07:54)
[2018-03-04 07:56] VITALS: BP 168/68
[2018-03-04] MEDS ORDERED: POTASSIUM CHLORIDE 20 MEQ TABLET.ER. PO ONE (08:15)
--- NOTE | 2018-03-04 08:25 | PDOC ---
SUBJECTIVE Subjective Doing ok this AM. No new issues. OBJECTIVE Objective Reviewed. MRI Impression: 1. Abnormality on CT corresponds with old infarct with cortical involvement although there are several small acute or early subacute infarcts most numerous of the left frontal parietal lobes although also some foci of the right parietal lobe and questionably of the right occipital lobe and cingulate gyrus or corpus callosum. Other scattered T2 and FLAIR hyperintense signal abnormality of the supratentorial parenchyma greater on the left and also of the aster is probably due to chronic microvascular ischemic disease, also old lacunar infarct of the left choi radiata and basal ganglia. Vital Signs Vital Signs Date Time Temp Pulse Resp B/P (MAP) Pulse Ox O2 Delivery O2 Flow Rate FiO2 03/04/18 07:56 99.5 72 18 168/68 (101) 96 Room Air 99.5 03/04/18 07:54 72 168/68 03/04/18 03:00 97.6 70 16 139/80 (99) 98 Room Air 97.6 03/03/18 23:05 97.6 63 16 145/82 (103) 98 Room Air 97.6 03/03/18 20:05 Room Air 03/03/18 19:38 98.1 73 16 129/81 (97) 96 Room Air 98.1 03/03/18 15:35 98.3 74 18 158/83 (108) 95 Room Air 98.3 03/03/18 11:00 98.0 81 16 144/75 (98) 97 Room Air 98.0 03/03/18 08:49 64 167/65 I & O Intake and Output 03/04/18 07:00 Intake Total 1240 ml Balance 1240 ml Intake Oral 1240 ml # Voids 10 PHYSICAL EXAM Physical Exam Alert, oriented, no acute distress EOMI, sclera non-icteric Neck supple RRR, 2/6 systolic murmur at 2nd R intercostal space CTAB, no wheezes, crackles or rhonchi Soft, NT, ND No edema, cyanosis. Normal capillary refill. Calm, cooperative, mood/affect within normal limits, seems mildly confused. ASSESSMENT/PLAN Assessment/Plan Late subacute left temporal/occipital lobe CVA per CT, MRI showed multiple other small acute and early subacute infarcts throughout Chronic microvascular ischemic disease Accelerated HTN, improving Mild UTI, awaiting culture Nicotine depenedence, in early remission Possible mild cognitive impairment GERD Chronic diarrhea Lisinopril, added spironolactone Neuro, Cards consulted PT/OT eval WALTER today ASA, high intensity statin Plan for dc to rehab when able. COMMENT Lab Laboratory Tests Test 03/04/18 03:05 Sodium Level 140 mmol/L (136-145) Potassium Level 3.0 mmol/L (3.5-5.1) Chloride Level 105 mmol/L (98-107) Carbon Dioxide Level 30 mmol/L (21-32) Anion Gap 5 (6-14) Blood Urea Nitrogen 16 mg/dL (7-20) Creatinine 0.9 mg/dL (0.6-1.0) Estimated GFR (Cockcroft-Gault) 62.1 Glucose Level 102 mg/dL (70-99) Calcium Level 9.2 mg/dL (8.5-10.1) Triglycerides Level 105 mg/dL (0-150) Cholesterol Level 184 mg/dL (0-200) LDL Cholesterol, Calculated 134 mg/dL (0-100) VLDL Cholesterol, Calculated 21 mg/dL (0-40) Non-HDL Cholesterol Calculated 155 mg/dL (0-129) HDL Cholesterol 29 mg/dL (40-60) Cholesterol/HDL Ratio 6.3 CHIP JAMISON MD Mar 04, 2018 08:25
[2018-03-04] MEDS ORDERED: LIDOCAINE 2% TOPICAL JELLY 5GM TUBE. TP ONE (08:48)
[2018-03-04] MEDS ORDERED: BENZOCAINE ONE 20% MUCOSAL SPRAY. (08:48)
[2018-03-04] MEDS ORDERED: LIDOCAINE 2% VISCOUS 15 ML SOLUTION. ONE (08:49)
[2018-03-04] MEDS ORDERED: LIDOCAINE 2% VISCOUS 15 ML SOLUTION. SWSW SCH (09:15)
[2018-03-04] MEDS ORDERED: LIDOCAINE 2% TOPICAL JELLY 5GM TUBE. TP SCH (09:15)
[2018-03-04] MEDS ORDERED: BENZOCAINE ONE 20% MUCOSAL SPRAY. MM SCH (09:15)
[2018-03-04] MEDS ORDERED: LIDOCAINE 2% 100 MG/5 ML SYRINGE. ONE (09:22)
[2018-03-04] MEDS ORDERED: PROPOFOL 20 ML IV ONE (09:41)
[2018-03-04] MEDS ORDERED: NICOTINE 21MG PATCH. TD PRN (09:45)
--- NOTE | 2018-03-04 10:53 | CARD ---
MR#: [id number] Date of Study: 03/04/2018 Ordering Physician: NIRANJAN LAWSON, Referring Physician: CHIP JAMISON, Tech: CARLOS Doyle APPROVED REPORT EXAM: Two-dimensional and M-mode echocardiogram with Doppler and color Doppler. Reason For Test : Rule out Intracardiac Thrombus. PROCEDURE After obtaining informed consent, patient underwent transesophageal echo in the PACU. Type of Sedation : General Anesthesia Sedation was administered by Anup Chavarria. Sedation was achieved with Propofol 160mg intravenously. Transesophageal probe was inserted and advanced into esophagus by Juan Ferrera MD. The WALTER was performed without complications. Throughout the procedure, the blood pressure, pulse oximetry, cardiac rhythm, and rate were monitored . The patient tolerated the procedure without adverse effects. Recovery from general anesthesia was une ventful and vital signs were stable. LEFT VENTRICLE The left ventricle is normal size. The left ventricular systolic function is normal and the ejection fraction is within normal range. EF 55% There is normal LV segmental wall motion. No left ventricle t hrombus noted on this study. RIGHT VENTRICLE The right ventricle is normal size. There is normal right ventricular wall thickness. The right ventr icular systolic function is normal. ATRIA The left atrium size is normal. The right atrium size is normal. The interatrial septum is intact wit h no evidence for an atrial septal defect or patent foramen ovale as noted on 2-D or Doppler imaging. There is no thrombus noted in the left atrial appendage. AORTIC VALVE The aortic valve is thickened but opens well. Doppler and Color Flow revealed no significant aortic r egurgitation. There is no significant aortic valvular stenosis. There is no aortic valvular vegetatio n. MITRAL VALVE The mitral valve is thickened but opens well. A mild mitral valve prolapse is present. There is no mi tral valve stenosis. Doppler and Color-flow revealed mild mitral regurgitation. TRICUSPID VALVE The tricuspid valve is normal in structure and function. Doppler and Color Flow revealed no tricuspid valve regurgitation noted. There is no tricuspid valve prolapse or vegetation. There is no tricuspid valve stenosis. PULMONIC VALVE The pulmonic valve is not well visualized. Doppler and Color Flow revealed no pulmonic valvular regur gitation. There is no pulmonic valvular stenosis. GREAT VESSELS There is mild atherosclerotic plaques in the ascending aorta. PERICARDIAL EFFUSION There is no evidence of significant pericardial effusion. There is no pleural effusion. Critical Notification Critical Value: No <Conclusion> The left ventricular systolic function is normal and the ejection fraction is within normal range. EF 55% There is normal LV segmental wall motion. Doppler and Color-flow revealed mild mitral regurgitation. There are moderate atherosclerotic plaques in the thoracic aorta. Signed by : Bijan Ferrera, Electronically Approved : 03/04/2018 10:52:03
[2018-03-04] MEDS: LACTOBACILLUS RHAMNOSUS GG 1 CAPSULE. PO SCH ×2 (11:10→20:19)
[2018-03-04] MEDS: SPIRONOLACTONE 25 MG TABLET PO SCH (11:10)
[2018-03-04] MEDS: ENOXAPARIN 40 MG/0.4 ML SYRINGE. SQ SCH (11:11)
[2018-03-04] MEDS: cefTRIAXone IV Push 1 GM VIAL. IVP SCH (11:11)
[2018-03-04] MEDS: ASPIRIN ENTERIC COATED 325 MG TABLET.DR. PO SCH (11:11)
[2018-03-04 11:13] VITALS: BP 182/77
[2018-03-04 15:06] VITALS: BP 166/82
--- NOTE | 2018-03-04 16:11 | PDOC ---
PROGRESS NOTES Assessment Problems Medical Problems: (1) CVA (cerebral vascular accident) Status: Acute (2) UTI (urinary tract infection) Status: Acute Left temporal-occipital infarct which may have happened several months ago leaving the patient with some clumsiness, confusion, but she does not exhibit the expected field cut. Also has several small acute or early subacute infarcts left frontal parietal lobes, right parietal lobe, and questionably of the right occipital lobe and cingulate gyrus or corpus callosum Chronic microvascular ischemic disease Cardioembolic workup is negative, so all these infarcts are probably on the basis of small vessel microvascular disease from hypertension Hyperlipidemia Plan Rehabilitation modalities Aspirin Statin, hold on higher intensity statin use for now, I like to see how she does with a normal dose. She is going to need some inpatient rehabilitation, suggest residential. Subjective Feels better Objective Vital Signs Date Time Temp Pulse Resp B/P (MAP) Pulse Ox O2 Delivery O2 Flow Rate FiO2 03/04/18 15:06 98.6 73 18 166/82 (110) 96 Room Air 98.6 03/04/18 09:55 2 Intake and Output 03/04/18 07:00 Intake Total 1240 ml Balance 1240 ml Intake Oral 1240 ml # Voids 10 PHYSICAL EXAM Alert. Oriented to time, place and person. PERRL. EOMI. CN: no focal findings. Muscle tone: normal. Muscle strength: 5/5 DTR: 2+ Plantar reflex: Flexor Gait: not examined in bed. Sensory exam: no abnormal findings. No cerebellar signs elicited. Review of Relevant I have reviewed the following items marisela (where applicable) has been applied. Labs Laboratory Tests Test 03/04/18 03:05 Sodium Level 140 mmol/L (136-145) Potassium Level 3.0 mmol/L (3.5-5.1) Chloride Level 105 mmol/L (98-107) Carbon Dioxide Level 30 mmol/L (21-32) Anion Gap 5 (6-14) Blood Urea Nitrogen 16 mg/dL (7-20) Creatinine 0.9 mg/dL (0.6-1.0) Estimated GFR (Cockcroft-Gault) 62.1 Glucose Level 102 mg/dL (70-99) Calcium Level 9.2 mg/dL (8.5-10.1) Triglycerides Level 105 mg/dL (0-150) Cholesterol Level 184 mg/dL (0-200) LDL Cholesterol, Calculated 134 mg/dL (0-100) VLDL Cholesterol, Calculated 21 mg/dL (0-40) Non-HDL Cholesterol Calculated 155 mg/dL (0-129) HDL Cholesterol 29 mg/dL (40-60) Cholesterol/HDL Ratio 6.3 Laboratory Tests Test 03/04/18 03:05 Sodium Level 140 mmol/L (136-145) Potassium Level 3.0 mmol/L (3.5-5.1) Chloride Level 105 mmol/L (98-107) Carbon Dioxide Level 30 mmol/L (21-32) Anion Gap 5 (6-14) Blood Urea Nitrogen 16 mg/dL (7-20) Creatinine 0.9 mg/dL (0.6-1.0) Estimated GFR (Cockcroft-Gault) 62.1 Glucose Level 102 mg/dL (70-99) Calcium Level 9.2 mg/dL (8.5-10.1) Triglycerides Level 105 mg/dL (0-150) Cholesterol Level 184 mg/dL (0-200) LDL Cholesterol, Calculated 134 mg/dL (0-100) VLDL Cholesterol, Calculated 21 mg/dL (0-40) Non-HDL Cholesterol Calculated 155 mg/dL (0-129) HDL Cholesterol 29 mg/dL (40-60) Cholesterol/HDL Ratio 6.3 Medications Current Medications Metoprolol Tartrate (Lopressor Vial) 5 mg 1X ONCE IVP Last administered on 03/02at 17:40; Start 03/02/18 at 17:00; Stop 03/02/18 at 17:01; Status DC Lisinopril (Prinivil) 20 mg 1X ONCE PO Last administered on 03/02/18at 19:40; Start 03/02/18 at 19:30; Stop 03/02/18 at 19:31; Status DC Lisinopril (Prinivil) 20 mg DAILY PO Last administered on 03/04/18at 07:54; Start 03/03/18 at 09:00 Labetalol HCl (Normodyne Iv Push) 10 mg PRN Q4HRS PRN IVP HYPERTENSION, SEE COMMENTS; Start 03/02/18 at 19:00; Stop 03/03/18 at 16:28; Status DC Zolpidem Tartrate (Ambien) 5 mg PRN QHS PRN PO INSOMNIA Last administered on 03/03/18at 20:08; Start 03/02/18 at 20:30 Non-Formulary Medication (Loperamide HCl (Imodium A-D)) 2 mg QID PO ; Start 03/02 at 21:00; Stop 03/02/18 at 21:00; Status DC Pantoprazole Sodium (Protonix) 40 mg DAILYAC PO Last administered on 03/04/18at 07:54; Start 03/03/18 at 07:30 Loperamide HCl (Imodium) 2 mg PRN QID PRN PO DIARRHEA Last administered on at 20:08; Start 03/02/18 at 20:45 Enoxaparin Sodium (Lovenox 40mg Syringe) 40 mg DAILY SQ Last administered on 03/04/18at 11:11; Start 03/03/18 at 09:00 Simvastatin (Zocor) 10 mg QHS PO Last administered on 03/03/18at 20:08; Start 03/03/18 at 21:00; Stop 03/04/18 at 08:15; Status DC Acetaminophen (Tylenol) 650 mg PRN Q6HRS PRN PO TEMP > 100.4F Last administered on 03/03/18at 20:08; Start 03/03/18 at 09:00 Acetaminophen (Tylenol Supp) 650 mg PRN Q4HRS PRN [place] TEMP > 100.4F; Start at 09:00 Aspirin (Ecotrin) 325 mg DAILYWBKFT PO Last administered on 03/04/18at 11:11; Start 03/03/18 at 09:00 Aspirin (Aspirin) 300 mg PRN DAILY PRN [place] IF UNABLE TO TAKE PO; Start 03/03/18 at 09:00 Diazepam (Valium) 10 mg 1X ONCE PO ; Start 03/03/18 at 09:00; Stop 03/03/18 at 09 :01; Status Cancel Ceftriaxone Sodium 1 gm/ Dextrose 50 ml @ 100 mls/hr Q24H IV ; Start 03/03/18 at 09:45; Status UNV Ceftriaxone Sodium (Rocephin) 1 gm Q24H IVP Last administered on 03/04/18at 11:11 ; Start 03/03/18 at 10:00 Lactobacillus Rhamnosus (Culturelle) 1 cap BID PO Last administered on at 11:10; Start 03/03/18 at 21:00 Diazepam (Valium) 10 mg 1X ONCE PO Last administered on 03/03/18at 13:22; Start 03/03/18 at 13:30; Stop 03/03/18 at 13:31; Status DC Ondansetron HCl (Zofran) 4 mg PRN Q6HRS PRN IV NAUSEA/VOMITING; Start 03/04/18 at 07:00; Stop 03/04/18 at 08:15; Status DC Fentanyl Citrate (Fentanyl 2ml Vial) 25 mcg PRN Q5MIN PRN IV MILD PAIN; Start 03/04/18 at 07:00; Stop 03/04/18 at 08:15; Status DC Fentanyl Citrate (Fentanyl 2ml Vial) 50 mcg PRN Q5MIN PRN IV MODERATE TO SEVERE PAIN; Start 03/04/18 at 07:00; Stop 03/04/18 at 08:15; Status DC Morphine Sulfate (Morphine Sulfate) 1 mg PRN Q10MIN PRN IV SEVERE PAIN; Start 03/04/18 at 07:00; Stop 03/04/18 at 08:15; Status DC Ringer's Solution 1,000 ml @ 30 mls/hr Q24H IV ; Start 03/04/18 at 07:00; Stop 03/04/18 at 18:59 Lidocaine HCl (Xylocaine-Mpf 1% 2ml Vial) 2 ml PRN 1X PRN ID IV START; Start at 07:00; Stop 03/05/18 at 06:59 Hydromorphone HCl (Dilaudid) 0.5 mg PRN Q10MIN PRN IV SEV PAIN, Second choice; Start 03/04/18 at 07:00; Stop 03/04/18 at 08:15; Status DC Prochlorperazine Edisylate (Compazine) 5 mg PACU PRN PRN IV NAUSEA, MRX1; Start 03/04/18 at 07:00; Stop 03/04/18 at 08:15; Status DC Labetalol HCl (Normodyne Iv Push) 10 mg PRN Q2HR PRN IVP HYPERTENSION, SEE COMMENTS; Start 03/03/18 at 16:00; Stop 03/04/18 at 08:15; Status DC Atorvastatin Calcium (Lipitor) 40 mg QHS PO ; Start 03/04/18 at 21:00 Spironolactone (Aldactone) 25 mg DAILY PO Last administered on 03/04/18at 11:10; Start 03/04/18 at 09:00 Potassium Chloride (Klor-Con) 40 meq 1X ONCE PO Last administered on 03/04/18at 11:10; Start 03/04/18 at 08:15; Stop 03/04/18 at 08:22; Status DC Benzocaine (Hurricaine One) 1 spray STK-MED ONCE .ROUTE ; Start 03/04/18 at 08:48 ; Stop 03/04/18 at 08:49; Status DC Lidocaine HCl (Xylocaine 2% Topical 5gm Tube) 5 abby STK-MED ONCE TP ; Start 03/04 at 08:48; Stop 03/04/18 at 08:49; Status DC Lidocaine HCl (Viscous Lidocaine) 15 ml STK-MED ONCE .ROUTE ; Start 03/04/18 at 08:49; Stop 03/04/18 at 08:50; Status DC Lidocaine HCl (Lidocaine HCl 2% Abboject) 100 mg STK-MED ONCE .ROUTE ; Start 03/04/18 at 09:22; Stop 03/04/18 at 09:23; Status DC Nicotine (Nicoderm Cq 21mg) 1 patch PRN DAILY PRN TD SMOKING CESSATION; Start 03/04/18 at 09:45 Benzocaine (Hurricaine One) 3 spray 1X PACU MM ; Start 03/04/18 at 09:15 Lidocaine HCl (Xylocaine 2% Topical 5gm Tube) 2 abby 1X PACU TP ; Start 03/04/18 at 09:15 Lidocaine HCl (Viscous Lidocaine) 15 ml 1X PACU SWSW ; Start 03/04/18 at 09:15 Propofol 20 ml @ As Directed STK-MED ONCE IV ; Start 03/04/18 at 09:41; Stop 03/04 at 09:42; Status DC Active Scripts Active Reported Prilosec Otc (Omeprazole Magnesium) 20 Mg Tablet.dr 1 Tab PO DAILY Imodium A-D (Loperamide HCl) 2 Mg Capsule 2 Mg PO QID Vitals/I & O Vital Sign - Last 24 Hours 03/03/18 03/03/18 03/03/18 03/04/18 19:38 20:05 23:05 03:00 Temp 98.1 97.6 97.6 98.1 97.6 97.6 Pulse 73 63 70 Resp 16 16 16 B/P (MAP) 129/81 (97) 145/82 (103) 139/80 (99) Pulse Ox 96 98 98 O2 Delivery Room Air Room Air Room Air Room Air 03/04/18 03/04/18 03/04/18 03/04/18 07:54 07:56 08:00 09:05 Temp 99.5 97.1 99.5 97.1 Pulse 72 72 72 Resp 18 16 B/P (MAP) 168/68 168/68 (101) 169/68 Pulse Ox 96 95 O2 Delivery Room Air Room Air Room Air 03/04/18 03/04/18 03/04/18 03/04/18 09:40 09:55 10:10 11:13 Temp 97.4 98.7 97.4 98.7 Pulse 76 67 66 70 Resp 18 14 16 16 B/P (MAP) 184/83 161/78 169/84 182/77 (112) Pulse Ox 97 97 98 96 O2 Delivery Nasal Cannula Nasal Cannula Room Air Room Air O2 Flow Rate 2 2 03/04/18 15:06 Temp 98.6 98.6 Pulse 73 Resp 18 B/P (MAP) 166/82 (110) Pulse Ox 96 O2 Delivery Room Air Intake and Output 03/03/18 03/03/18 03/04/18 15:00 23:00 07:00 Intake Total 440 ml 800 ml Balance 440 ml 800 ml Images MRI brain: There is encephalomalacia and gliosis with cortical involvement of the left temporal occipital lobes corresponding with CT abnormality, some subtle associated old hemorrhage/hemosiderin deposition. However there are several scattered small foci of restricted diffusion of the left frontal parietal lobes with some cortical involvement although primarily in the white matter, also focus more centrally near the cingulate gyrus or corpus callosum and also a a few likely tiny foci of the right parietal cortical surface. There is also questionable tiny focus of the right occipital lobe. There is no midline shift or extra-axial fluid collection. There is other scattered [id number] T2 and FLAIR hyperintense abnormality of the supratentorial parenchyma bilaterally greater on the left, also old lacunar infarcts of the left choi radiata and basal ganglia. There is [id number] T2 and FLAIR hyperintense signal abnormality of the aster. There is preservation of the major arterial intracranial flow voids at the skull base. The mastoid air cells are aerated. Cerebellar tonsils are normal in location. There is preserved marrow signal of the clivus. There is no abnormality of the pineal gland or pituitary gland. Impression: 1. Abnormality on CT corresponds with old infarct with cortical involvement although there are several small acute or early subacute infarcts most numerous of the left frontal parietal lobes although also some foci of the right parietal lobe and questionably of the right occipital lobe and cingulate gyrus or corpus callosum. Other scattered T2 and FLAIR hyperintense signal abnormality of the supratentorial parenchyma greater on the left and also of the aster is probably due to chronic microvascular ischemic disease, also old lacunar infarct of the left choi radiata and basal ganglia. Echocardiogram: LEFT VENTRICLE The left ventricle is normal size. There is normal left ventricular wall thickness. The left ventricular systolic function is normal and the ejection fraction is within normal range. The Ejection Fraction is 55-60%. There is normal LV segmental wall motion. Transmitral Doppler flow pattern is Grade I- abnormal relaxation pattern. RIGHT VENTRICLE The right ventricle is normal size. The right ventricular systolic function is normal. ATRIA The left atrium size is normal. The right atrium size is normal. The interatrial septum is intact with no evidence for an atrial septal defect or patent foramen ovale as noted on 2-D or Doppler imaging. AORTIC VALVE The aortic valve is calcified but opens well. Doppler and Color Flow revealed trace aortic regurgitation. There is no significant aortic valvular stenosis. MITRAL VALVE The mitral valve is calcified but opens well. There is no evidence of mitral valve prolapse. There is no mitral valve stenosis. Doppler and Color-flow revealed trace mitral regurgitation. TRICUSPID VALVE The tricuspid valve is normal in structure and function. Doppler and Color Flow revealed no tricuspid valve regurgitation noted. There is no tricuspid valve stenosis. PULMONIC VALVE The pulmonic valve is not well visualized. Doppler and Color Flow revealed trace pulmonic valvular regurgitation. There is no pulmonic valvular stenosis. GREAT VESSELS The aortic root is normal in size. The ascending aorta is normal in size. The IVC is normal in size and collapses >50% with inspiration. PERICARDIAL EFFUSION There is no evidence of significant pericardial effusion. Critical Notification Critical Value: No <Conclusion> The left ventricular systolic function is normal and the ejection fraction is within normal range. The Ejection Fraction is 55-60%. There is normal LV segmental wall motion. WALTER: LEFT VENTRICLE The left ventricle is normal size. The left ventricular systolic function is normal and the ejection fraction is within normal range. EF 55% There is normal LV segmental wall motion. No left ventricle thrombus noted on this study. RIGHT VENTRICLE The right ventricle is normal size. There is normal right ventricular wall thickness. The right ventricular systolic function is normal. ATRIA The left atrium size is normal. The right atrium size is normal. The interatrial septum is intact with no evidence for an atrial septal defect or patent foramen ovale as noted on 2-D or Doppler imaging. There is no thrombus noted in the left atrial appendage. AORTIC VALVE The aortic valve is thickened but opens well. Doppler and Color Flow revealed no significant aortic regurgitation. There is no significant aortic valvular stenosis. There is no aortic valvular vegetation. MITRAL VALVE The mitral valve is thickened but opens well. A mild mitral valve prolapse is present. There is no mitral valve stenosis. Doppler and Color-flow revealed mild mitral regurgitation. TRICUSPID VALVE The tricuspid valve is normal in structure and function. Doppler and Color Flow revealed no tricuspid valve regurgitation noted. There is no tricuspid valve prolapse or vegetation. There is no tricuspid valve stenosis. PULMONIC VALVE The pulmonic valve is not well visualized. Doppler and Color Flow revealed no pulmonic valvular regurgitation. There is no pulmonic valvular stenosis. GREAT VESSELS There is mild atherosclerotic plaques in the ascending aorta. PERICARDIAL EFFUSION There is no evidence of significant pericardial effusion. There is no pleural effusion. Critical Notification Critical Value: No <Conclusion> The left ventricular systolic function is normal and the ejection fraction is within normal range. EF 55% There is normal LV segmental wall motion. Doppler and Color-flow revealed mild mitral regurgitation. There are moderate atherosclerotic plaques in the thoracic aorta. Carotids: 1. Moderate atherosclerotic plaquing at the carotid bifurcations, right greater than left, with underlying luminal narrowing of the proximal internal carotid arteries in the 0-50 percent diameter range bilaterally. 2. Doppler evidence of moderate stenosis at the external carotid artery origins, right greater than left. ANT CARLSON MD Mar 04, 2018 16:11
[2018-03-04 19:05] VITALS: BP 165/70
[2018-03-04] MEDS ORDERED: ATORVASTATIN CALCIUM 40 MG TABLET. PO SCH (21:00)
[2018-03-04] MEDS ORDERED: HYDROcodone/APAP 5/325MG 1 TAB TABLET PO PRN (22:00)
[2018-03-04 23:05] VITALS: BP 174/68
[2018-03-05 03:05] VITALS: BP 143/78
[2018-03-05 07:00] VITALS: BP 149/80
[2018-03-05] MEDS ORDERED: Nicotine 21MG TD (07:59)
[2018-03-05] MEDS ORDERED: ASPI325T11 PO (07:59)
[2018-03-05] MEDS ORDERED: ATOR40TA59 PO (07:59)
[2018-03-05] MEDS ORDERED: SPIR25TA PO (07:59)
[2018-03-05] MEDS ORDERED: LISI-130 PO (07:59)
--- NOTE | 2018-03-05 08:00 | PDOC ---
SUBJECTIVE Subjective Doing well this AM. No concerns. OBJECTIVE Objective Reviewed. Vital Signs Vital Signs Date Time Temp Pulse Resp B/P (MAP) Pulse Ox O2 Delivery O2 Flow Rate FiO2 03/05/18 03:05 98.0 66 16 143/78 (99) 95 Room Air 98.0 03/04/18 23:07 Room Air 03/04/18 23:05 98.3 75 16 174/68 (103) 98 Room Air 98.3 03/04/18 22:07 Room Air 03/04/18 20:00 Room Air 2.0 03/04/18 19:05 98.4 73 16 165/70 (101) 97 Room Air 98.4 03/04/18 15:06 98.6 73 18 166/82 (110) 96 Room Air 98.6 03/04/18 11:13 98.7 70 16 182/77 (112) 96 Room Air 98.7 03/04/18 10:10 66 16 169/84 98 Room Air 03/04/18 09:55 67 14 161/78 97 Nasal Cannula 2 03/04/18 09:40 97.4 76 18 184/83 97 Nasal Cannula 2 97.4 03/04/18 09:05 97.1 72 16 169/68 95 Room Air 97.1 03/04/18 08:00 Room Air I & O Intake and Output 03/05/18 07:00 Intake Total 1200 ml Output Total 5 ml Balance 1195 ml Intake Oral 1200 ml Output Urine Total 5 ml # Voids 1 PHYSICAL EXAM Physical Exam Alert, oriented, no acute distress EOMI, sclera non-icteric Neck supple RRR, 2/6 systolic murmur at 2nd R intercostal space CTAB, no wheezes, crackles or rhonchi Soft, NT, ND No edema, cyanosis. Normal capillary refill. Calm, cooperative, mood/affect within normal limits, seems less confused today ASSESSMENT/PLAN Assessment/Plan Late subacute left temporal/occipital lobe CVA per CT, MRI showed multiple other small acute and early subacute infarcts throughout Chronic microvascular ischemic disease Accelerated HTN, improving Nicotine depenedence, in early remission Possible mild cognitive impairment GERD Chronic diarrhea Strongly encouraged smoking cessation correction Plan for dc to rehab when able TRUSTY,CHIP Manzanares MD Mar 05, 2018 08:00
[2018-03-05] MEDS: LACTOBACILLUS RHAMNOSUS GG 1 CAPSULE. PO SCH (08:43)
[2018-03-05] MEDS: PANTOPRAZOLE 40 MG TABLET.DR. PO SCH (08:43)
[2018-03-05] MEDS: LISINOPRIL 20 MG TABLET PO SCH (08:43)
[2018-03-05] MEDS: ENOXAPARIN 40 MG/0.4 ML SYRINGE. SQ SCH (08:43)
[2018-03-05] MEDS: ASPIRIN ENTERIC COATED 325 MG TABLET.DR. PO SCH (08:43)
[2018-03-05] MEDS: SPIRONOLACTONE 25 MG TABLET PO SCH (08:43)
--- NOTE | 2018-03-05 10:45 | PDOC ---
PROGRESS NOTES Assessment Problems Medical Problems: (1) CVA (cerebral vascular accident) Status: Acute (2) UTI (urinary tract infection) Status: Acute Left temporal-occipital infarct Also has several small acute or early subacute infarcts left frontal parietal lobes, right parietal lobe, and questionably of the right occipital lobe and cingulate gyrus or corpus callosum Chronic microvascular ischemic disease Cardioembolic workup is negative, so all these infarcts are probably on the basis of small vessel microvascular disease from hypertension Plan Rehabilitation modalities Aspirin Statin, hold on higher intensity statin use for now, I like to see how she does with a normal dose. She is going to need some inpatient rehabilitation, [facility]. Subjective No complaints Objective Vital Signs Date Time Temp Pulse Resp B/P (MAP) Pulse Ox O2 Delivery O2 Flow Rate FiO2 03/05/18 08:43 68 149/80 03/05/18 08:00 Room Air 03/05/18 07:00 97.7 20 91 97.7 03/04/18 20:00 2.0 Intake and Output 03/05/18 07:00 Intake Total 1200 ml Output Total 5 ml Balance 1195 ml Intake Oral 1200 ml Output Urine Total 5 ml # Voids 1 PHYSICAL EXAM Alert. Oriented to time, place and person. PERRL. EOMI. CN: no focal findings. Muscle tone: normal. Muscle strength: 5/5 DTR: 2+ Plantar reflex: Flexor Gait: not examined in bed. Sensory exam: no abnormal findings. No cerebellar signs elicited. Review of Relevant I have reviewed the following items marisela (where applicable) has been applied. Labs Laboratory Tests Test 03/04/18 03:05 Sodium Level 140 mmol/L (136-145) Potassium Level 3.0 mmol/L (3.5-5.1) Chloride Level 105 mmol/L (98-107) Carbon Dioxide Level 30 mmol/L (21-32) Anion Gap 5 (6-14) Blood Urea Nitrogen 16 mg/dL (7-20) Creatinine 0.9 mg/dL (0.6-1.0) Estimated GFR (Cockcroft-Gault) 62.1 Glucose Level 102 mg/dL (70-99) Hemoglobin A1c 5.0 % (4.8-5.6) Calcium Level 9.2 mg/dL (8.5-10.1) Triglycerides Level 105 mg/dL (0-150) Cholesterol Level 184 mg/dL (0-200) LDL Cholesterol, Calculated 134 mg/dL (0-100) VLDL Cholesterol, Calculated 21 mg/dL (0-40) Non-HDL Cholesterol Calculated 155 mg/dL (0-129) HDL Cholesterol 29 mg/dL (40-60) Cholesterol/HDL Ratio 6.3 Microbiology 03/02/18 Urine Culture - Final, Complete 03/02/18 Urine Culture Result 1 (VIRIDIANA) - Final, Complete Medications Current Medications Metoprolol Tartrate (Lopressor Vial) 5 mg 1X ONCE IVP Last administered on 03/02at 17:40; Start 03/02/18 at 17:00; Stop 03/02/18 at 17:01; Status DC Lisinopril (Prinivil) 20 mg 1X ONCE PO Last administered on 03/02/18at 19:40; Start 03/02/18 at 19:30; Stop 03/02/18 at 19:31; Status DC Lisinopril (Prinivil) 20 mg DAILY PO Last administered on 03/05/18at 08:43; Start 03/03/18 at 09:00 Labetalol HCl (Normodyne Iv Push) 10 mg PRN Q4HRS PRN IVP HYPERTENSION, SEE COMMENTS; Start 03/02/18 at 19:00; Stop 03/03/18 at 16:28; Status DC Zolpidem Tartrate (Ambien) 5 mg PRN QHS PRN PO INSOMNIA Last administered on 03/03/18at 20:08; Start 03/02/18 at 20:30 Non-Formulary Medication (Loperamide HCl (Imodium A-D)) 2 mg QID PO ; Start 03/02 at 21:00; Stop 03/02/18 at 21:00; Status DC Pantoprazole Sodium (Protonix) 40 mg DAILYAC PO Last administered on 03/05/18at 08:43; Start 03/03/18 at 07:30 Loperamide HCl (Imodium) 2 mg PRN QID PRN PO DIARRHEA Last administered on at 20:08; Start 03/02/18 at 20:45 Enoxaparin Sodium (Lovenox 40mg Syringe) 40 mg DAILY SQ Last administered on 03/05/18at 08:43; Start 03/03/18 at 09:00 Simvastatin (Zocor) 10 mg QHS PO Last administered on 03/03/18at 20:08; Start 03/03/18 at 21:00; Stop 03/04/18 at 08:15; Status DC Acetaminophen (Tylenol) 650 mg PRN Q6HRS PRN PO TEMP > 100.4F Last administered on 03/03/18at 20:08; Start 03/03/18 at 09:00 Acetaminophen (Tylenol Supp) 650 mg PRN Q4HRS PRN CA TEMP > 100.4F; Start at 09:00 Aspirin (Ecotrin) 325 mg DAILYWBKFT PO Last administered on 03/05/18at 08:43; Start 03/03/18 at 09:00 Aspirin (Aspirin) 300 mg PRN DAILY PRN CA IF UNABLE TO TAKE PO; Start 03/03/18 at 09:00 Diazepam (Valium) 10 mg 1X ONCE PO ; Start 03/03/18 at 09:00; Stop 03/03/18 at 09 :01; Status Cancel Ceftriaxone Sodium 1 gm/ Dextrose 50 ml @ 100 mls/hr Q24H IV ; Start 03/03/18 at 09:45; Status UNV Ceftriaxone Sodium (Rocephin) 1 gm Q24H IVP Last administered on 03/04/18at 11:11 ; Start 03/03/18 at 10:00; Stop 03/05/18 at 07:56; Status DC Lactobacillus Rhamnosus (Culturelle) 1 cap BID PO Last administered on at 08:43; Start 03/03/18 at 21:00 Diazepam (Valium) 10 mg 1X ONCE PO Last administered on 03/03/18at 13:22; Start 03/03/18 at 13:30; Stop 03/03/18 at 13:31; Status DC Ondansetron HCl (Zofran) 4 mg PRN Q6HRS PRN IV NAUSEA/VOMITING; Start 03/04/18 at 07:00; Stop 03/04/18 at 08:15; Status DC Fentanyl Citrate (Fentanyl 2ml Vial) 25 mcg PRN Q5MIN PRN IV MILD PAIN; Start 03/04/18 at 07:00; Stop 03/04/18 at 08:15; Status DC Fentanyl Citrate (Fentanyl 2ml Vial) 50 mcg PRN Q5MIN PRN IV MODERATE TO SEVERE PAIN; Start 03/04/18 at 07:00; Stop 03/04/18 at 08:15; Status DC Morphine Sulfate (Morphine Sulfate) 1 mg PRN Q10MIN PRN IV SEVERE PAIN; Start 03/04/18 at 07:00; Stop 03/04/18 at 08:15; Status DC Ringer's Solution 1,000 ml @ 30 mls/hr Q24H IV ; Start 03/04/18 at 07:00; Stop 03/04/18 at 18:59; Status DC Lidocaine HCl (Xylocaine-Mpf 1% 2ml Vial) 2 ml PRN 1X PRN ID IV START; Start at 07:00; Stop 03/05/18 at 06:59; Status DC Hydromorphone HCl (Dilaudid) 0.5 mg PRN Q10MIN PRN IV SEV PAIN, Second choice; Start 03/04/18 at 07:00; Stop 03/04/18 at 08:15; Status DC Prochlorperazine Edisylate (Compazine) 5 mg PACU PRN PRN IV NAUSEA, MRX1; Start 03/04/18 at 07:00; Stop 03/04/18 at 08:15; Status DC Labetalol HCl (Normodyne Iv Push) 10 mg PRN Q2HR PRN IVP HYPERTENSION, SEE COMMENTS; Start 03/03/18 at 16:00; Stop 03/04/18 at 08:15; Status DC Atorvastatin Calcium (Lipitor) 40 mg QHS PO Last administered on 03/04/18at 20:19 ; Start 03/04/18 at 21:00 Spironolactone (Aldactone) 25 mg DAILY PO Last administered on 03/05/18at 08:43; Start 03/04/18 at 09:00 Potassium Chloride (Klor-Con) 40 meq 1X ONCE PO Last administered on 03/04/18at 11:10; Start 03/04/18 at 08:15; Stop 03/04/18 at 08:22; Status DC Benzocaine (Hurricaine One) 1 spray STK-MED ONCE .ROUTE ; Start 03/04/18 at 08:48 ; Stop 03/04/18 at 08:49; Status DC Lidocaine HCl (Xylocaine 2% Topical 5gm Tube) 5 abby STK-MED ONCE TP ; Start 03/04 at 08:48; Stop 03/04/18 at 08:49; Status DC Lidocaine HCl (Viscous Lidocaine) 15 ml STK-MED ONCE .ROUTE ; Start 03/04/18 at 08:49; Stop 03/04/18 at 08:50; Status DC Lidocaine HCl (Lidocaine HCl 2% Abboject) 100 mg STK-MED ONCE .ROUTE ; Start 03/04/18 at 09:22; Stop 03/04/18 at 09:23; Status DC Nicotine (Nicoderm Cq 21mg) 1 patch PRN DAILY PRN TD SMOKING CESSATION Last administered on 03/04/18at 17:40; Start 03/04/18 at 09:45 Benzocaine (Hurricaine One) 3 spray 1X PACU MM ; Start 03/04/18 at 09:15 Lidocaine HCl (Xylocaine 2% Topical 5gm Tube) 2 abby 1X PACU TP ; Start 03/04/18 at 09:15 Lidocaine HCl (Viscous Lidocaine) 15 ml 1X PACU SWSW ; Start 03/04/18 at 09:15 Propofol 20 ml @ As Directed STK-MED ONCE IV ; Start 03/04/18 at 09:41; Stop 03/04 at 09:42; Status DC Acetaminophen/ Hydrocodone Bitart (Lortab 5/325) 1 tab PRN Q6HRS PRN PO PAIN Last administered on 03/04/18at 22:07; Start 03/04/18 at 22:00 Active Scripts Active Reported Prilosec Otc (Omeprazole Magnesium) 20 Mg Tablet.dr 1 Tab PO DAILY Imodium A-D (Loperamide HCl) 2 Mg Capsule 2 Mg PO QID Vitals/I & O Vital Sign - Last 24 Hours 03/04/18 03/04/18 03/04/18 03/04/18 11:13 15:06 19:05 20:00 Temp 98.7 98.6 98.4 98.7 98.6 98.4 Pulse 70 73 73 Resp 16 18 16 B/P (MAP) 182/77 (112) 166/82 (110) 165/70 (101) Pulse Ox 96 96 97 O2 Delivery Room Air Room Air Room Air Room Air O2 Flow Rate 2.0 9/6/18 9/6/18 9/6/18 9/7/18 22:07 23:05 23:07 03:05 Temp 98.3 98.0 98.3 98.0 Pulse 75 66 Resp 16 16 B/P (MAP) 174/68 (103) 143/78 (99) Pulse Ox 98 95 O2 Delivery Room Air Room Air Room Air Room Air 03/05/18 03/05/18 03/05/18 07:00 08:00 08:43 Temp 97.7 97.7 Pulse 68 68 Resp 20 B/P (MAP) 149/80 (103) 149/80 Pulse Ox 91 O2 Delivery Room Air Room Air Intake and Output 03/04/18 03/04/18 03/05/18 15:00 23:00 07:00 Intake Total 500 ml 700 ml Output Total 5 ml Balance 495 ml 700 ml ANT CARLSON MD Mar 05, 2018 10:45
[2018-03-05 11:00] VITALS: BP 165/82
[2018-03-05 15:00] VITALS: BP 109/75
--- NOTE | 2018-03-07 09:43 | PDOC3 ---
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 Vizcarra is a 67 year old female with past medical history of hypertension, nicotine dependence, GERD and chronic diarrhea who presented to the emergency room for chronic neurological symptoms that began proximally 5-6 months ago. She doesn't remember a period of time when symptoms onset suddenly. She had not seen a PCP since 2012 and has been without her medications for this time. She noted generalized weakness (possibly R worse than L) for quite sometime. She was found to have severely uncontrolled HTN. CT Head showed late subacute stroke of the left parietal/occipital lobes. Carotid Dopplers showed stenosis between 0-50% bilaterally. TTE was unremarkable with normal EF. MRI report stated "abnormality on CT corresponds with old infarct with cortical involvement although there are several small acute or early subacute infarcts most numerous of the left frontal and parietal lobes although also some foci of the right parietal lobe and questionably of the right occipital lobe and cingulate gyrus or corpus callosum. Other scattered T2 and FLAIR hyperintense signal abnormality of the supratentorial parenchyma greater on the left and also of the aster is probably due to chronic microvascular ischemic disease, also old lacunar infarct of the left choi radiata and basal ganglia." She was not found to be in atrial fibrillation at any time and a transesophageal echo was performed to confirm that no intracardiac thrombus was present. Cardiology recommended well services operator as outpatient to confirm that atrial fibrillation is not present. She did not have severe deficits, but was found to be a candidate for rehabilitation. And after discussion with son and patient, has desires for placement in long-term care facility at a later time. She was discharged to [facility] for care home as well as physical therapy and occupational therapy. She was started on Atorvastatin 40mg PO daily, ASA 325mg PO daily, Lisinopril 20mg PO daily and Spironolactone 25mg PO daily. She was noted to have mild hypokalemia during admission. Recommendation for repeat BMP in 1 week and monitoring of blood pressure with adjustment of medications as indicated. She will follow up in clinic in 1-2 weeks if she is not being transferred to long-term care facility where she'll be managed from there. She was strongly encouraged to quit smoking and encouraged to use nicotine replacement to help her quit. CONDITION AT DISCHARGE: Improved, Stable Discharge Medications Active Aspirin Ec (Aspirin) 325 Mg Tablet. 325 Mg PO DAILYWBKFT 30 Days Aldactone (Spironolactone) 25 Mg Tablet 25 Mg PO DAILY 30 Days Lisinopril 40 Mg Tablet 20 Mg PO DAILY 30 Days Atorvastatin Calcium 40 Mg Tablet 40 Mg PO QHS 30 Days [Nicotine 21MG] 1 PATCH Patch 1 Patch TD PRN DAILY PRN 30 Days Reported Prilosec Otc (Omeprazole Magnesium) 20 Mg Tablet. 1 Tab PO DAILY Imodium A-D (Loperamide HCl) 2 Mg Capsule 2 Mg PO QID Allergies Allergies Coded Allergies Type Severity Reaction Last Updated Verified No Known Drug Allergies 03/04/18 No Disposition/Orders: D/C to Another Facility CHIP JAMISON MD Mar 07, 2018 09:43
== END 2018-03-05 17:43 | DRG 64 ==
LOC: ER 14:28 → 6 SOUTH 16:42
PROVIDERS: ADMIT Family Medicine; ATTEND Family Medicine
DX: I63.9 Cerebral infarction, unspecified (principal); G93.40 Encephalopathy, unspecified; N39.0 Urinary tract infection, site not specified; E78.5 Hyperlipidemia, unspecified; F17.200 Nicotine dependence, unspecified, uncomplicated; I10 Essential (primary) hypertension; I34.0 Nonrheumatic mitral (valve) insufficiency; I34.1 Nonrheumatic mitral (valve) prolapse; K21.9 Gastro-esophageal reflux disease without esophagitis; K52.9 Noninfective gastroenteritis and colitis, unspecified; F32.9 Major depressive disorder, single episode, unspecified; F41.9 Anxiety disorder, unspecified; G89.29 Other chronic pain; M19.90 Unspecified osteoarthritis, unspecified site; Z82.3 Family history of stroke; Z83.3 Family history of diabetes mellitus; Z86.73 Personal history of transient ischemic attack (TIA), and cerebral infarction without residual deficits; Z90.710 Acquired absence of both cervix and uterus; Z79.899 Other long term (current) drug therapy
CPT/HCPCS: 36415; 70450; 70551; 71046; 80048; 80053; 80061; 81001; 82553; 82607; 82962; 83036; 83605; 83880; 84443; 84484; 85025; 85651; 86140; 87086; 93005; 93306; 93312; 93325; 93880; 96374; J0696; J1650; J2704; J3490; 92610; 97112; 97116; 97530; 97535; 99285-25